=== PATIENT | male | born 1970 | race Caucasian/White ===

== ENCOUNTER 2018-04-25 19:07 | Emergency (ER) | payer BC, OTHER ==
[2018-04-25 19:25] VITALS: RESP 20; TEMP 97.4
[2018-04-25 19:34] VITALS: BP 119/74; PULSE 86; O2SAT 97
[2018-04-25] MEDS ORDERED: LIDOCAINE BUFFERED 1% 50 ML SOL SC ONE (19:45)
== END 2018-04-25 20:23 | disposition home or self-care (01) ==
LOC: ED 19:07
DX: S61.216A Laceration without foreign body of right little finger without damage to nail, initial encounter (principal)
CPT/HCPCS: 12001; 99284; G0168